=== PATIENT | female | born 1990 | race Caucasian/White ===

== ENCOUNTER 2019-03-18 00:13 | Emergency (ER) | payer OTHER ==
[~2019-03-18] VITALS: Ht 167.6 cm; Wt 80.5 kg
[2019-03-18] MEDS ORDERED: ONDANSETRON 4MG/2ML VIAL (J2405) IV ONE (00:45)
[2019-03-18] MEDS ORDERED: KETOROLAC 30 MG/ML VIAL (J1885) IV ONE (00:45)
[2019-03-18] MEDS ORDERED: ESCI20TA PO (00:46)
[2019-03-18] MEDS ORDERED: TOPA50TA8 PO (00:46)
[2019-03-18] MEDS ORDERED: PAME25CA PO (00:46)
[2019-03-18 01:12] LABS: BASO % 0.3 % (0.0-1.0); EOS # 0.1 10^3/uL (0.0-0.50); EOS % 1.4 % (0.0-3.0); HEMATOCRIT 37.6 % (36.0-47.0); HEMOGLOBIN 13.3 g/dl (12.0-15.5); LYMPH # 2.5 10^3/uL (1.5-4.5); LYMPH % 27.8 % (24.0-44.0); MEAN CORPUSCULAR HEMOGLOBIN 31.8 pg (27.0-33.0); MEAN CORPUSCULAR HGB CONC 35.4 g/dl (32.0-36.5); MONO # 0.6 10^3/uL (0.0-0.8); MONO % 6.4 % (0.0-5.0); NEUTROPHILS # 5.8 10^3/uL (1.8-7.7); NEUTROPHILS % 63.8 % (36.0-66.0); PLATELET COUNT, AUTOMATED 267 10^3/uL (150-450); RED BLOOD COUNT 4.18 10^6/uL (4.00-5.40); WHITE BLOOD COUNT 9.1 10^3/uL (4.0-10.0)
[2019-03-18] MEDS ORDERED: KETAMINE IV ONE (01:30)
[2019-03-18] MEDS ORDERED: NACL IV ONE (01:30)
[2019-03-18] MEDS ORDERED: DILUENT IV ONE (01:30)
[2019-03-18 01:35] LABS: BLOOD UREA NITROGEN 11 MG/DL (7-18); CALCIUM LEVEL 8.5 MG/DL (8.5-10.1); CARBON DIOXIDE LEVEL 24 MEQ/L (21-32); CHLORIDE LEVEL 110 MEQ/L (98-107); CREATININE FOR GFR 0.88 MG/DL (0.55-1.30); GLOMERULAR FILTRATION RATE > 60.0 (>60); GLUCOSE, FASTING 97 MG/DL (70-100); POTASSIUM SERUM 3.6 MEQ/L (3.5-5.1); SODIUM LEVEL 141 MEQ/L (136-145)
[2019-03-18 01:52] LABS: C REACTIVE PROTEIN QUANTITATIV < 0.30 MG/DL (0.00-0.30)
--- NOTE | 2019-03-18 02:22 | REPVR ---
EXAM: CT Abdomen and Pelvis Without Contrast EXAM DATE/TIME: 03/18/2019 1:23 AM CLINICAL HISTORY: 28 years old, female; Right flank pain and dysuria. TECHNIQUE: Imaging protocol: Axial computed tomography images of the abdomen and pelvis without contrast. Coronal and sagittal reformatted images were created and reviewed. Radiation optimization: All CT scans at this facility use at least one of these dose optimization techniques: automated exposure control; mA and/or kV adjustment per patient size (includes targeted exams where dose is matched to clinical indication); or iterative reconstruction. COMPARISON: No relevant prior studies available. FINDINGS: Lungs: The imaged lung bases are clear. Heart: No cardiomegaly or pericardial effusion is noted. ABDOMEN: Liver: There are cysts in the left hepatic lobe measuring up to 15 mm. The contour of the liver is smooth. No hepatomegaly is noted. Gallbladder and bile ducts: No calcified gallstones are seen. No gallbladder wall thickening, pericholecystic fluid, or pericholecystic inflammatory changes are identified. No dilation of the intrahepatic or extrahepatic bile ducts is noted. Pancreas: Unremarkable. No ductal dilation. Spleen: Unremarkable. No splenomegaly. Adrenals: Normal. No mass. Kidneys and ureters: No renal lesion is identified. There is a 2 mm non-obstructive calculus in the lower pole calyx of the right kidney. No calculi are seen in the left kidney or in the ureters. There is no hydronephrosis or hydroureter or perinephric fluid collection. Stomach and bowel: There is no evidence for a bowel obstruction, diverticulosis, diverticulitis, colitis, pneumatosis intestinalis, intussusception, volvulus, or perforated viscus. Appendix: No evidence for appendicitis. PELVIS: Bladder: The partially distended urinary bladder is unremarkable. No stones or masses are seen in the bladder. Reproductive: The uterus is anterverted and unremarkable. The ovaries are unremarkable. ABDOMEN and PELVIS: Intraperitoneal space: Normal. No free air. No fluid collection. Bones/joints: The imaged bony structures are intact. There is no suspicious osteolytic or osteoblastic lesion. Soft tissues: Unremarkable. Incidental note is made of an umbilical piercing. Vasculature: No abdominal aortic aneurysm. Incidental note is made of small round calcifications in the pelvis, which are compatible with phleboliths. Lymph nodes: Normal. No enlarged lymph nodes. IMPRESSION: Nonobstructive right nephrolithiasis. Electronically signed by: Miguel Hawkins On 03/18/2019 02:22:02 AM
[2019-03-18] MEDS ORDERED: PYRI1TAB5 PO (03:08)
[2019-03-18] MEDS ORDERED: CIPR-249 PO (03:08)
[2019-03-18] MEDS ORDERED: PHENAZOPYRIDINE 100 MG TAB PO ONE (03:15)
[2019-03-18] MEDS ORDERED: CIPROFLOXACIN 500 MG TAB PO ONE (03:15)
[2019-03-18 03:24] VITALS: BP 131/87
[2019-03-18 03:31] LABS: AMPHETAMINES LEVEL URINE NEGATIVE (NEGATIVE); BARBITURATES URINE NEGATIVE (NEGATIVE); BENZODIAZEPINES URINE NEGATIVE (NEGATIVE); CANNABINOIDS URINE NEGATIVE (NEGATIVE); COCAINE METABOLITE URINE NEGATIVE (NEGATIVE); METHADONE URINE NEGATIVE (NEGATIVE); OPIATES URINE POSITIVE (NEGATIVE); PHENCYCLIDINE URINE NEGATIVE (NEGATIVE)
== END 2019-03-18 03:26 | disposition home or self-care (01) ==
LOC: M ED 00:13
DX: N39.0 Urinary tract infection, site not specified (principal); R10.9 Unspecified abdominal pain; N20.0 Calculus of kidney; Z72.89 Other problems related to lifestyle; Z87.442 Personal history of urinary calculi; Z87.448 Personal history of other diseases of urinary system; Z79.899 Other long term (current) drug therapy; Z88.0 Allergy status to penicillin; Z88.6 Allergy status to analgesic agent; Z88.5 Allergy status to narcotic agent; Z88.8 Allergy status to other drugs, medicaments and biological substances
CPT/HCPCS: 74176; 80048; 80307; 81001; 84702; 85025; 86140; 87040; 87088; 87186; 96365; 96375; 99284; J1885; J2405

== ENCOUNTER 2020-08-16 20:35 | Emergency (ER) | payer OTHER ==
[~2020-08-16] VITALS: Ht 167.6 cm; Wt 77.3 kg
[~2020-08-16 20:35] MED LIST: CIPR-249 PO; ESCI20TA PO; PAME25CA PO; PYRI1TAB5 PO; TOPA50TA8 PO
[2020-08-16] MEDS ORDERED: CELE20TA PO (20:45)
[2020-08-16] MEDS ORDERED: QUET5TAB PO (20:45)
[2020-08-16] MEDS ORDERED: diphenhydrAMINE 50MG/ML VIAL (J1200) IV STA (21:05)
[2020-08-16] MEDS ORDERED: methylPREDNISolone 125MG 2ML VIAL IV ONE (21:15)
[2020-08-16] MEDS ORDERED: NS 1,000 ML IV ONE (21:15)
[2020-08-16 21:22] LABS: BASO % 0.2 % (0.0-1.0); EOS # 0.1 10^3/uL (0.0-0.5); EOS % 1.3 % (0.0-3.0); HEMATOCRIT 38.6 % (36.0-47.0); HEMOGLOBIN 12.9 g/dl (12.0-15.5); LYMPH # 2.3 10^3/uL (1.5-5.0); LYMPH % 27.5 % (24.0-44.0); MEAN CORPUSCULAR HEMOGLOBIN 30.8 pg (27.0-33.0); MEAN CORPUSCULAR HGB CONC 33.4 g/dl (32.0-36.5); MEAN CORPUSCULAR VOLUME 92.1 fl (80.0-96.0); MONO # 0.4 10^3/uL (0.0-0.8); MONO % 5.2 % (0.0-5.0); NEUTROPHILS # 5.4 10^3/uL (1.5-8.5); NEUTROPHILS % 65.4 % (36.0-66.0); PLATELET COUNT, AUTOMATED 302 10^3/uL (150-450); RED BLOOD COUNT 4.19 10^6/uL (4.00-5.40); WHITE BLOOD COUNT 8.3 10^3/uL (4.0-10.0)
[2020-08-16 21:40] LABS: CK-MB VALUE MASS < 1.0 NG/ML (<3.6); CPK CREATINE PHOSPHOKINASE 62 U/L (26-192); MB/CK RELATIVE INDEX 1.61 (< OR =4); TROPONIN I < 0.02 NG/ML (< 0.10)
[2020-08-16 21:41] LABS: ERYTHROCYTE SEDIMENTATION RATE 12 mm/hr (0-20)
--- NOTE | 2020-08-16 21:42 | REPVR ---
PROCEDURE INFORMATION: Exam: CT Head Without Contrast Exam date and time: 08/16/2020 9:27 PM Age: 30 years old Clinical indication: Dizziness and speech disturbance; Slurred speech TECHNIQUE: Imaging protocol: Computed tomography of the head without contrast. Radiation optimization: All CT scans at this facility use at least one of these dose optimization techniques: automated exposure control; mA and/or kV adjustment per patient size (includes targeted exams where dose is matched to clinical indication); or iterative reconstruction. Other technique: STROKE PROTOCOL was implemented. COMPARISON: No relevant prior studies available. FINDINGS: Brain: There is no CT evidence for an acute large vessel territorial infarct. No acute intracranial hemorrhage is seen. No mass, mass effect, midline shift, or herniation is noted. The cortical gyration pattern, basal ganglia, thalami, brainstem, and cerebellum are normal in appearance. Cerebral ventricles: Normal. No hydrocephalus. Bones/joints: The skull is intact. No suspicious osteolytic or osteoblastic lesion. Paranasal sinuses: The imaged portions of the sinuses are well-aerated. No air-fluid levels are noted in the sinuses. The sinuses were not fully imaged. Mastoid air cells: Clear. Auditory system: The middle ear spaces are clear. Soft tissues: Unremarkable. No soft tissue fluid collection. Other findings: Incidental note is made of pneumatization of the petrous apices. IMPRESSION: No acute intracranial abnormality. ASSESSMENT: ASPECTS ([facility] Stroke Program Early CT Score) is 10. Electronically signed by: Miguel Hawkins On 08/16/2020 21:41:24 PM
[2020-08-16] MEDS ORDERED: KETOROLAC 30 MG/ML 1ML VIAL IV ONE (22:15)
[2020-08-16] MEDS ORDERED: FAMOTIDINE INJ 20MG/2ML VIAL (S0028 PER 1) IVP ONE (22:45)
[2020-08-16] MEDS ORDERED: GI COCKTAIL 50ML BTL(HYOSCYAMINE/MAALOX/LIDOCAINE VISCOUS)(1:3:1) PO ONE (23:15)
[2020-08-17] MEDS ORDERED: PRED20TA PO (00:16)
[2020-08-17 00:25] VITALS: BP 121/75
== END 2020-08-17 00:27 | disposition home or self-care (01) ==
LOC: M ED 20:35
DX: R22.0 Localized swelling, mass and lump, head (principal); R07.0 Pain in throat; R47.9 Unspecified speech disturbances; Z88.0 Allergy status to penicillin; Z88.6 Allergy status to analgesic agent; Z88.5 Allergy status to narcotic agent; Z88.1 Allergy status to other antibiotic agents; Z79.899 Other long term (current) drug therapy
CPT/HCPCS: 70450; 80047; 82550; 82553; 84484; 84702; 85025; 85652; 86140; 96361; 96374; 96375; 99283; J1200; J1885; J2930

== ENCOUNTER 2020-11-05 08:51 | Emergency (ER) | payer OTHER ==
[~2020-11-05 08:51] MED LIST changes: +CELE20TA PO; -ESCI20TA PO; +ESCI20TA16 PO; +PRED20TA PO; +QUET50TA3 PO
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
[2020-11-05] MEDS ORDERED: CYCLOBENZAPRINE 5MG TABLET PO ONE (09:30)
[2020-11-05] MEDS ORDERED: ACETAMINOPHEN 500 MG TAB PO ONE (09:30)
[2020-11-05 09:55] VITALS: BP 143/84
--- NOTE | 2020-11-05 10:52 | REP ---
INDICATION: fall COMPARISON: None. TECHNIQUE: Axial noncontrast images from the skull base to the thoracic inlet with coronal and sagittal re-formations This CT examination was performed using the following dose reduction techniques: Automated exposure control, adjustment of mA and/or kv according to the patient's size, and use of iterative reconstruction technique. FINDINGS: Straightening of normal lordosis is nonspecific. Normal alignment is maintained. Cervical vertebral bodies including transverse processes and spinous processes are intact and there is no evidence for acute fracture / compression injury or subluxation. Spinal canal is patent. Posterior elements are intact. Paravertebral soft tissues are normal. Incidental partial opacification to the maxillary sinuses likely represents acute/chronic sinusitis. IMPRESSION: Normal noncontrast cervical spine CT. No evidence for acute pathology or trauma/injury. <Electronically signed by Raymundo Rogers > 11/05/20 1041
--- NOTE | 2020-11-05 10:53 | REP ---
INDICATION: fall. COMPARISON: None. TECHNIQUE: Axial noncontrast images of the thoracic spine with coronal and sagittal reformations. FINDINGS: Thoracic vertebral bodies are intact and without acute fracture/compression injury or subluxation. Alignment and kyphosis maintained. Disc spaces are normal. Spinal canal is patent and normal. Posterior elements and spinous processes are intact. Paravertebral soft tissues are normal. IMPRESSION: Normal thoracic spine CT. No evidence for acute trauma/injury. <Electronically signed by Raymundo Rogers > 11/05/20 [id number]
[2020-11-05 11:13] LABS: APPEARANCE, URINE HAZY (CLEAR); BACTERIA, URINE AUTO 3+ (NEGATIVE); BILIRUBIN, URINE AUTO NEGATIVE (NEGATIVE); BLOOD, URINE BLOOD NEGATIVE (NEGATIVE); COLOR, URINE YELLOW (YELLOW); GLUCOSE, URINE (UA) AUTO NEGATIVE (NEGATIVE); KETONE, URINE AUTO NEGATIVE (NEGATIVE); LEUKOCYTE ESTERASE, URINE AUTO TRACE (NEGATIVE); MUCUS, URINE SMALL (NEGATIVE); NITRITE, URINE AUTO POSITIVE (NEGATIVE); PROTEIN, URINE AUTO NEGATIVE (NEGATIVE); RBC, URINE AUTO 2 /HPF (0-3); SPECIFIC GRAVITY URINE AUTO 1.017 (1.002-1.035); SQUAMOUS EPITHELIAL CELL UR AU 4 /HPF (0-6); UROBILINOGEN, URINE AUTO 0.2 mg/dL (0.0-2.0); WBC, URINE AUTO 9 /HPF (0-3)
--- NOTE | 2020-11-05 11:13 | REP ---
INDICATION: fall COMPARISON: 08/16/2020 TECHNIQUE: Axial noncontrast images from the skull base to the vertex with coronal reformations. This CT examination was performed using the following dose reduction techniques: Automated exposure control, adjustment of mA and/or kv according to the patient's size, and use of iterative reconstruction technique. FINDINGS: The ventricles, sulci, and cisterns are normal in position and appearance. Galvez-white differentiation is maintained. No acute intracranial hemorrhage, mass/mass effect, pathology or trauma/injury. No evidence for acute infarction. No extra-axial fluid collection. Calvarium is intact. There is near complete opacification of the right maxillary sinus and partial opacification with definable mucocele in the left maxillary sinus consistent with chronic sinus disease. Remainder of the sinuses are clear. IMPRESSION: Chronic maxillary sinusitis. No evidence for acute intracranial pathology or trauma/injury. <Electronically signed by Raymundo Rogers > 11/05/20 1107
[2020-11-05] MEDS ORDERED: LIDOCAINE 5% (LIDODERM) PATCH TD ONE (11:30)
[2020-11-05] MEDS ORDERED: KETOROLAC 30 MG/ML 1ML VIAL IM ONE (11:30)
[2020-11-05] MEDS ORDERED: LIDO5DIS41 TOP (12:31)
[2020-11-05] MEDS ORDERED: CYCL5TAB PO (12:31)
[2020-11-05] MEDS ORDERED: IBUP80TA PO (12:31)
[2020-11-05] MEDS ORDERED: **NOTE PATIENT COMMENT** MISC XX SCH (21:00)
== END 2020-11-05 12:49 | disposition home or self-care (01) ==
LOC: M ED 08:51
DX: S29.012A Strain of muscle and tendon of back wall of thorax, initial encounter (principal); S16.1XXA Strain of muscle, fascia and tendon at neck level, initial encounter; S00.93XA Contusion of unspecified part of head, initial encounter; W01.198A Fall on same level from slipping, tripping and stumbling with subsequent striking against other object, initial encounter; Y92.89 Other specified places as the place of occurrence of the external cause; Y93.89 Activity, other specified; Y99.8 Other external cause status; J32.0 Chronic maxillary sinusitis; F41.9 Anxiety disorder, unspecified; F32.9 Major depressive disorder, single episode, unspecified; Z87.442 Personal history of urinary calculi; Z88.0 Allergy status to penicillin; Z88.6 Allergy status to analgesic agent; Z88.5 Allergy status to narcotic agent; Z88.4 Allergy status to anesthetic agent
CPT/HCPCS: 70450; 72125; 72128; 80047; 81001; 84702; 87088; 87186; 96372; 99284; J1885